=== PATIENT | male | born 1935 | race Caucasian/White ===

== ENCOUNTER 2020-04-17 05:16 | Day surgery (SDC) | payer MEDICARE, OTHER ==
[2020-04-10 14:41] LABS: BASOPHILS # (AUTO) 0.1 X10'3 (0-0.2); BASOPHILS % (AUTO) 0.9 % (0-1); EOSINOPHILS # (AUTO) 0.4 X10'3 (0-0.9); EOSINOPHILS % (AUTO) 5.5 % (0-6); LYMPHOCYTES # (AUTO) 1.8 X10'3 (1.1-4.8); LYMPHOCYTES % (AUTO) 24.2 % (21-51); MEAN CORPUSCULAR HEMOGLOBIN 33.1 PG (27.0-31.0); MEAN CORPUSCULAR HGB CONC 34.1 g/dL (33.0-36.5); MEAN CORPUSCULAR VOLUME 97.1 FL (78-98); MEAN PLATELET VOLUME 8.9 FL (7.4-10.4); MONOCYTES # (AUTO) 0.8 X10'3 (0-0.9); MONOCYTES % (AUTO) 9.9 % (2-12); NEUTROPHILS # (AUTO) 4.5 X10'3 (1.8-7.7); NEUTROPHILS % (AUTO) 59.5 % (42-75); PRE OP HEMATOCRIT 39.8 % (42.0-52.0); PRE OP HEMOGLOBIN 13.6 g/dL (14.0-17.9); PRE OP PLATELET COUNT 183 X10'3 (140-440); RED CELL DISTRIBUTION WIDTH 13.9 % (11.5-14.5)
[2020-04-10 14:58] LABS: ALBUMIN 3.8 G/DL (3.4-5.0); ALBUMIN/GLOBULIN RATIO 1.1 (1.1-1.5); ALKALINE PHOSPHATASE 56 IU/L (46-116); BLOOD UREA NITROGEN 27 MG/DL (7-18); CALCIUM 9.3 MG/DL (8.5-10.1); CHLORIDE 102 MMOL/L (99-107); CREATININE 1.08 MG/DL (0.60-1.10); PRE OP ALT 23 U/L (30-65); PRE OP ANION GAP 7 (8-16); PRE OP AST 26 U/L (10-37); PRE OP BILIRUB, TOTAL 0.3 MG/DL (0.0-1.0); PRE OP GLUCOSE 101 MG/DL (70-104); PRE OP POTASSIUM 4.5 MMOL/L (3.4-5.1); PRE OP SODIUM 137 MMOL/L (135-145); TOTAL CARBON DIOXIDE 28.4 MMOL/L (24-32); TOTAL PROTEIN 7.3 G/DL (6.4-8.2); eGFR 65 ML/MIN
[2020-04-17] VITALS (11 sets, daily range): BP systolic 131–160; BP diastolic 67–116
[~2020-04-17] VITALS: Ht 157.5 cm; Wt 72.6 kg
[~2020-04-17 05:16] MED LIST: ACET-1008 PO; ALBU6.7H9 INH; ASPI-1264 PO; ATOR10TA PO; CALC-336; CHOL3000; CLOP75TA4 PO; DOCU100C41 PO; FLO0.4C PO; FLUT1DIS4 INH; MIDO5TAB4 PO; MULT-1085 PO; OMEP40CA13 PO; OXYGEN NASALCANN; POLY17PO10 PO; PYRI50TA13 PO; SENN-263 PO; THIA100T70 PO; ringers solution, lacted 1,000 ML IV SCH
[2020-04-17] MEDS ORDERED: ceFAZolin/D5W- 1GM premix 50 ML IV ONE (05:30)
[2020-04-17] MEDS ORDERED: famotidine 20mg tablet PO ONE (05:30)
[2020-04-17] MEDS ORDERED: LIDOcaine 1% (10mg/ml) 2ml vial ONE (05:45)
[2020-04-17] MEDS ORDERED: BUPIVAcaine/PF 2.5mg/ml (0.25%) 10ml vial ONE (06:42)
[2020-04-17] MEDS ORDERED: LIDOcaine 0.5% (5mg/ml) 50ml vial ONE (07:39)
[2020-04-17] MEDS ORDERED: ringers solution, lacted 1,000 ML IV SCH (07:46)
[2020-04-17] MEDS ORDERED: meperidine/PF 25mg/ml syringe IV PRN ×3 (07:50)
[2020-04-17] MEDS ORDERED: proCHLORperazine 10 MG/2 ml inj IV PRN (07:50)
[2020-04-17] MEDS ORDERED: hydrALAZINE 20mg/ml inj. IV PRN (07:50)
[2020-04-17] MEDS ORDERED: acetaminophen 1,000mg/100ml IV 100 ML IV PRN (07:50)
[2020-04-17] MEDS ORDERED: labetalol 20mg/4ml (5mg/ml) syringe IV PRN (07:50)
[2020-04-17] MEDS ORDERED: ondansetron/PF 4mg/2ml inj IV PRN (07:50)
[2020-04-17] MEDS ORDERED: morphine 4 MG/ML inj SYRINge IV PRN (07:50)
[2020-04-17] MEDS ORDERED: morphine 2 MG/ML inj. syringe IV PRN (07:50)
[2020-04-17] MEDS ORDERED: fentaNYL/PF 50MCG/1 ML 2ML syringe ONE (08:01)
[2020-04-17] MEDS ORDERED: propofol inj 20 ML IV ONE (08:18)
--- NOTE | 2020-04-17 08:36 | NUR ---
RECEIVED FORM OR VIA GURNEY ACCOMPANIED BY ANESTHESIOLOGIST DR SAWYER, REPORT GIVEN. 20 GAUGE PIV L FA PATENT AND RUNNING LR AT 100 ML/HR. DRESSING R WRIST CDI. PPULSES PALAPABLE RUE UNABLE TO PALPATE IS COVERED. BRISK CAP REFILL, SKIN PINK AND WARM, LINDO, VSS, DENIES PAIN. RUE ELEVATED AND ICE APPLIED.RESTING COMFORTABLY.
--- NOTE | 2020-04-17 10:06 | NUR ---
20 GAUGE PIV L FA DC/D CATH TIP INTACT. DRESSING R WRIST CDI. PPULSES PALAPABLE RUE UNABLE TO PALPATE IS COVERED. BRISK CAP REFILL, SKIN PINK AND WARM, LINDO, VSS, DENIES PAIN. RUE ELEVATED AND ICE APPLIED. PT ABLE TO TOLERATE FLUIDS, DRESS SELF AND AMBULATE.DISCHARGE INSTRUCTIONS GIVEN AND PT VERBALIZED UNDERSTANDING. TRANSPORTED VIA WHEELCHAIR TO SPOUSE IN PRIVATE VEHICLE TO HOME.
== END 2020-04-17 10:06 | disposition home or self-care (01) ==
LOC: PAS 05:16
PROVIDERS: ATTEND Orthopaedic Surgery Hand Surgery
DX: G56.01 Carpal tunnel syndrome, right upper limb (principal); M65.331 Trigger finger, right middle finger; D64.9 Anemia, unspecified; J44.9 Chronic obstructive pulmonary disease, unspecified; Z20.828 Contact with and (suspected) exposure to other viral communicable diseases; Z79.899 Other long term (current) drug therapy; Z79.01 Long term (current) use of anticoagulants; Z98.41 Cataract extraction status, right eye; Z98.42 Cataract extraction status, left eye; Z98.890 Other specified postprocedural states; Z86.73 Personal history of transient ischemic attack (TIA), and cerebral infarction without residual deficits; Z90.2 Acquired absence of lung [part of]
CPT/HCPCS: 26055; 36415; 64721; 80053; 85025; 87635; 93005; A6222; J0690; J2001; J2704; J3010; J3490; A4215; J7120

== ENCOUNTER 2020-06-02 06:05 | Day surgery (SDC) | payer MEDICARE, OTHER ==
[2020-05-29 14:48] LABS: BASOPHILS % (AUTO) 0.7 % (0-1); EOSINOPHILS # (AUTO) 0.3 X10'3 (0-0.9); EOSINOPHILS % (AUTO) 4.2 % (0-6); LYMPHOCYTES # (AUTO) 1.7 X10'3 (1.1-4.8); LYMPHOCYTES % (AUTO) 24.4 % (21-51); MEAN CORPUSCULAR HEMOGLOBIN 32.3 PG (27.0-31.0); MEAN CORPUSCULAR HGB CONC 33.3 g/dL (33.0-36.5); MEAN PLATELET VOLUME 9.1 FL (7.4-10.4); MONOCYTES # (AUTO) 0.7 X10'3 (0-0.9); MONOCYTES % (AUTO) 10.1 % (2-12); NEUTROPHILS # (AUTO) 4.2 X10'3 (1.8-7.7); NEUTROPHILS % (AUTO) 60.6 % (42-75); PRE OP HEMATOCRIT 40.2 % (42.0-52.0); PRE OP HEMOGLOBIN 13.4 g/dL (14.0-17.9); PRE OP PLATELET COUNT 187 X10'3 (140-440); RED BLOOD COUNT 4.15 X10'6 (4.70-6.10); RED CELL DISTRIBUTION WIDTH 13.7 % (11.5-14.5)
[2020-05-29 15:06] LABS: ALBUMIN 3.9 G/DL (3.4-5.0); ALKALINE PHOSPHATASE 59 IU/L (46-116); BLOOD UREA NITROGEN 19 MG/DL (7-18); BUN/CREATININE RATIO 21.1 (5.4-32.0); CALCIUM 9.6 MG/DL (8.5-10.1); CHLORIDE 100 MMOL/L (99-107); PRE OP ALT 22 U/L (30-65); PRE OP ANION GAP 0 (8-16); PRE OP AST 22 U/L (10-37); PRE OP BILIRUB, TOTAL 0.6 MG/DL (0.0-1.0); PRE OP GLUCOSE 87 MG/DL (70-104); PRE OP POTASSIUM 4.1 MMOL/L (3.4-5.1); PRE OP SODIUM 132 MMOL/L (135-145); TOTAL PROTEIN 7.8 G/DL (6.4-8.2); eGFR 80 ML/MIN
[2020-05-29 15:10] LABS: PRE OP PROTIME 10.8 SECONDS (9.0-12.0)
[~2020-06-02] VITALS: Ht 157.5 cm; Wt 74.8 kg
[~2020-06-02 06:05] MED LIST changes: -ASPI-1264 PO; +CALC-1215 PO; -CALC-336; -CHOL3000; +CHOL3000 PO; +albuterol 2.5 MG/3 ML nebule NEB ONE; +ceFAZolin 2gm in dextrose, iso 50 ML IV ONE; +famotidine 20mg tablet PO ONE
[2020-06-02 06:20] VITALS: BP 109/69
[2020-06-02] MEDS ORDERED: BUPIVAcaine/PF 2.5mg/ml (0.25%) 10ml vial ONE ×2 (06:39→07:58)
[2020-06-02] MEDS ORDERED: morphine 4 MG/ML inj SYRINge IV PRN (07:40)
[2020-06-02] MEDS ORDERED: morphine 2 MG/ML inj. syringe IV PRN (07:40)
[2020-06-02] MEDS ORDERED: ringers solution, lacted 1,000 ML IV SCH (07:40)
[2020-06-02] MEDS ORDERED: proCHLORperazine 10 MG/2 ml inj IV PRN (07:40)
[2020-06-02] MEDS ORDERED: ondansetron/PF 4mg/2ml inj IV PRN (07:40)
[2020-06-02] MEDS ORDERED: meperidine/PF 25mg/ml syringe IV PRN ×3 (07:40)
[2020-06-02] MEDS ORDERED: LIDOcaine 0.5% (5mg/ml) 50ml vial ONE (08:02)
[2020-06-02] MEDS ORDERED: fentaNYL/PF 50MCG/1 ML 2ML syringe ONE (08:14)
[2020-06-02] MEDS ORDERED: midazolam 2 mg/2 ml injection ONE (08:14)
[2020-06-02] MEDS ORDERED: propofol inj 20 ML IV ONE (08:34)
[2020-06-02 08:50] VITALS: BP 124/78
--- NOTE | 2020-06-02 08:50 | NUR ---
Received from OR via BED, accompanied by Anesthesiologist DR CONWAY and report given by Anesthesiolgist. PATIENT A&OX4, DENIES PAIN, V/S WNL, NEUROVASCULAR CHECKS INTACT, 20G PIV RUE, SCD ON, DRESSING TO LEFT WRIST CDI ELEVATED WITH ICEBAG APPLIED.
[2020-06-02 09:00] VITALS: BP 139/79
[2020-06-02 09:10] VITALS: BP 142/77
[2020-06-02 09:20] VITALS: BP 141/72
--- NOTE | 2020-06-02 09:20 | NUR ---
PATIENT A&OX4, DENIES PAIN, V/S WNL, NEUROVASCULAR CHECKS INTACT, 20G PIV LUE D/C, SCD OFF, DRESSING TO LEFT WRIST CDI ELEVATED WITH ICEBAG APPLIED. I HAVE REVIEWED D/C INSTRUCTIONS WITH PATIENT AND FAMILY AND THEY HAVE VERBALIZED UNDERSTANDING. PATIENT D/C HOME WITH ALL BELONGINGS AND FAMILY GAVE TRANSPORT HOMER
== END 2020-06-02 09:20 | disposition home or self-care (01) ==
LOC: PAS 06:05
PROVIDERS: ATTEND Orthopaedic Surgery Hand Surgery
DX: G56.02 Carpal tunnel syndrome, left upper limb (principal); M65.332 Trigger finger, left middle finger; J44.9 Chronic obstructive pulmonary disease, unspecified; N40.0 Benign prostatic hyperplasia without lower urinary tract symptoms; D64.9 Anemia, unspecified; Z87.442 Personal history of urinary calculi; Z86.73 Personal history of transient ischemic attack (TIA), and cerebral infarction without residual deficits; Z86.718 Personal history of other venous thrombosis and embolism; Z85.828 Personal history of other malignant neoplasm of skin; Z86.19 Personal history of other infectious and parasitic diseases; Z90.2 Acquired absence of lung [part of]; Z79.01 Long term (current) use of anticoagulants; Z79.899 Other long term (current) drug therapy; Z20.828 Contact with and (suspected) exposure to other viral communicable diseases; Z98.890 Other specified postprocedural states
CPT/HCPCS: 26055; 36415; 64721; 80053; 82948; 85025; 85610; 85730; 87635; J2001; J2250; J2704; J3010; J3490; A4215; A6449; J7120